=== PATIENT | female | born 1985 | race Caucasian/White ===

== ENCOUNTER 2018-01-22 08:52 | Emergency (ER) | payer BC, OTHER ==
[2018-01-22 09:35] VITALS: BP 119/71
--- NOTE | 2018-01-22 09:48 | UC ---
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 and fell to the ground she caught the patient with her right arm and pulled on her right shoulder patient has exquisite pain in her right shoulder - History of Current Complaint Chief Complaint: UCTrauma Stated Complaint: WC-RT SHOULDER INJURY Time Seen by Provider: 01/22/18 09:39 Hx Obtained From: Patient Hx Last Menstrual Period: 01/20/18 ?: No Onset/Duration: Sudden Onset, Lasting Hours - 1.5 Timing: Constant Location Of Pain: Is Discrete @ - right shoulder Pain Intensity: 3 Pain Scale Used: 0-10 Numeric Character: Aching, Throbbing Aggravating Factor(s): Movement Alleviating Factor(s): Rest, Ice, OTC Meds - ibuprofen Associated Signs And Symptoms: Positive: Negative Related History: Dominant Hand Right - Allergies/Home Medications Allergies/Adverse Reactions: Allergies Allergy/AdvReac Type Severity Reaction Status Date / Time Penicillins Allergy Severe Anaphylatic Verified 01/22/18 09:35 Shock Home Medications: Home Medications Ibuprofen TAB* [Motrin TAB* 600 MG] 600 mg PO Q6H PRN 01/22/18 [History Confirmed 01/22/18] PMH/Surg Hx/FS Hx/Imm Hx Previously Healthy: Yes - Surgical History Surgical History: Yes Surgery Procedure, Year, and Place: Tubaligation - Family History Known Family History: Positive: None - Social History Occupation: Employed Full-time Lives: With Family Alcohol Use: Occasionally Substance Use Type: None Smoking Status (MU): Heavy Every Day Tobacco Smoker Have You Smoked in the Last Year: Yes Cessation Counseling: Patient Advised to Stop Review of Systems Constitutional: Negative Skin: Negative Eyes: Negative ENT: Negative Respiratory: Negative Cardiovascular: Negative Gastrointestinal: Negative Genitourinary: Negative Motor: Negative Neurovascular: Negative Musculoskeletal: Arthralgia - right shoulder Neurological: Negative Psychological: Negative Is Patient Immunocompromised?: No All Other Systems Reviewed And Are Negative: Yes Physical Exam Triage Information Reviewed: Yes Appearance: Well-Appearing, Well-Nourished, Pain Distress - right shoulder Vital Signs: Initial Vital Signs Temp 98.2 F 01/22/18 09:28 Pulse 77 01/22/18 09:28 Resp 16 01/22/18 09:28 BP 119/71 01/22/18 09:28 Pulse Ox 100 01/22/18 09:28 Vital Signs Reviewed: Yes Eye Exam: Normal Eyes: Positive: Conjunctiva Clear ENT Exam: Normal ENT: Positive: Normal ENT inspection, Hearing grossly normal. Negative: Trismus , Muffled voice, Hoarse voice Dental Exam: Normal Neck exam: Normal Neck: Positive: Supple, Nontender Respiratory Exam: Normal Respiratory: Positive: Chest non-tender, No respiratory distress, No accessory muscle use Cardiovascular Exam: Normal Cardiovascular: Positive: RRR, Pulses Normal, Brisk Capillary Refill Musculoskeletal Exam: Other Musculoskeletal: Positive: No Edema, Strength Limited @ - right shoulder, ROM Limited @ - right shoulder Neurological Exam: Normal Neurological: Positive: Alert, Muscle Tone Normal Psychological Exam: Normal Skin Exam: Normal Diagnostics - Radiology No standard instances Xray Interpretation: No Acute Changes Radiology Interpretation Completed By: ED Physician - Patient Name: JULIO CESAR REDMAN Medical Record#: [id number] Ordering Physician: Kristen Heaton NP Acct.#: [id number] : 1985 Age: 32 Sex: F Location: [facility] Exam Date: 01/22/18942 ADM Status: REG ER Order Information: SHOULDER RIGHT 2+ VWS Accession Number: [id number] CPT: 04091 Indication: RIGHT shoulder pain following pulling injury today. Comparison: No relevant prior exams available on the [facility] for comparison. Technique: Internal rotation AP, external rotation Grashey, scapular Y, axillary views RIGHT shoulder Report: Negative for fracture. Normal acromioclavicular and glenohumeral joint alignment. No arthropathic change evident. Unremarkable soft tissue contours. IMPRESSION: #. Negative radiographic exam of the RIGHT shoulder. <Electronically signed by Rakesh Day MD in OV> 1000 Dictated By: Rakesh Day MD Dictated Date/Time: 01/22/18 1000 Transcribed Date/Time: 01/22/18 0959 Copy to: CC:Kristen Heaton NP; ANTOINE Berger ; Donaldo Ventura MD; No Primary Care Phys,[facility] Imaging - [facility] Imaging - [facility] Imaging - [facility] [id number] [place] [id number] [place] [id number] ph ([phone] ph ) ph ([phone]) This report is only to be considered final once signed by the Provider(s) as displayed in the "<Electronically Signed by >" field (s). Absence of a signature indicates the report is in a draft status and still needs to be finalized. In the event this document was created by someone other than the signing Provider, the individual initiating the document will be listed in the "Entered by:" or "Dictated by:" wolfe. 1 of 1, Radiologist Shoulder Course/Dx - Course Assessment/Plan: sling, ice, ibuprofen, nicotine cesasation information follow with Dr. Davis this week - Differential Dx/Diagnosis Provider Diagnoses: right shoulder sprain, nicotine dependent Discharge - Sign-Out/Discharge Documenting (check all that apply): Patient Departure - Discharge Plan Condition: Stable Disposition: HOME Prescriptions: Ibuprofen TAB* [Motrin TAB* 600 MG] 600 mg PO Q6H PRN #30 tab PRN Reason: pain Patient Education Materials: How to Stop Smoking (ED), Shoulder Sprain (ED), Ice Pack Application (ED) Forms: *Work Release Referrals: Chele Davis MD [Medical Doctor] - 2 Days - Billing Disposition and Condition Condition: STABLE Disposition: Home
--- NOTE | 2018-01-22 10:03 | RAD ---
Indication: RIGHT shoulder pain following pulling injury today. Comparison: No relevant prior exams available on the [facility] for comparison. Technique: Internal rotation AP, external rotation Grashey, scapular Y, axillary views RIGHT shoulder Report: Negative for fracture. Normal acromioclavicular and glenohumeral joint alignment. No arthropathic change evident. Unremarkable soft tissue contours. IMPRESSION: #. Negative radiographic exam of the RIGHT shoulder.
== END 2018-01-22 10:28 | disposition home or self-care (01) ==
LOC: UCCORT 08:52
DX: S43.401A Unspecified sprain of right shoulder joint, initial encounter (principal); X50.0XXA Overexertion from strenuous movement or load, initial encounter; Y93.89 Activity, other specified; Y92.9 Unspecified place or not applicable; Z88.0 Allergy status to penicillin; F17.210 Nicotine dependence, cigarettes, uncomplicated
CPT/HCPCS: 99213; G0463

== ENCOUNTER 2018-09-03 09:09 | Day surgery (SDC) | payer OTHER ==
--- NOTE | 2018-08-27 14:52 | HP ---
PREOPERATIVE HISTORY AND PHYSICAL: DATE OF ADMISSION/SURGERY: 09/03/18 - [facility] DATE OF OFFICE VISIT: 08/23/18 ATTENDING SURGEON: Dr. Juan Marshall.* (DICTATED BY TAMEKA GAMEZ) PROCEDURES: Right shoulder possible arthroscopic rotator cuff repair, arthroscopic decompression, debridement, subpectoral biceps tenodesis, and excision of distal clavicle. CHIEF COMPLAINT: Right shoulder pain. HISTORY OF PRESENT ILLNESS: Lucila is a 33-year-old female who presents to clinic for right shoulder pain due to a work-related injury that caused impingement and biceps tendonitis as well as AC joint arthritis. She has failed conservative measures and agreed to undergo right shoulder possible arthroscopic rotator cuff repair, arthroscopic decompression, debridement, subpectoral biceps tenodesis, and excision of distal clavicle with Dr. Marshall on 09/03/18. PAST MEDICAL HISTORY: Childhood asthma, depression, and anxiety. PAST SURGICAL HISTORY: Tubal ligation. The patient denies prior complication with anesthesia. MEDICATIONS: No active medications. ALLERGIES: PENICILLIN, AMOXICILLIN, AND AMPICILLIN. FAMILY HISTORY: Positive for heart disease, stroke, and cancer. SOCIAL HISTORY: She lives with her spouse. 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 She is a smoker at one-half pack to three-quarters pack per day. She reports occasional alcohol consumption. She is right-hand dominant. REVIEW OF SYSTEMS: A 14-point review of systems was reviewed with the patient. Positive for current complaint; otherwise, negative. Denies fever, chills, chest pain, shortness of breath, history of DVT or PE, history of bleeding disorder. PHYSICAL EXAMINATION GENERAL: A 33-year-old well-developed, well-nourished female, in no acute distress. VITAL SIGNS: Height 65, weight 150. Pulse 68, blood pressure 122/80, temperature 97.0. BMI 25.0. HEENT: Normocephalic, atraumatic. PERRLA. Throat clear. NECK: Supple. PULMONARY: Lungs are clear to auscultation bilaterally. No wheezing, rhonchi, or rales. CARDIO: Regular rate and rhythm. S1, S2. No murmurs, gallops, or rubs. No edema. ABDOMEN: Positive bowel sounds. Soft, nontender. NEURO: Alert and oriented x3. Cranial nerves grossly intact. MUSCULOSKELETAL: Right upper extremity: Skin is intact. Tenderness over the biceps tendon and AC joint. Forward flexion 120, abduction 90, external rotation 45, internal rotation to lumbar spine; +4/5 strength to rotator cuff testing with pain. Positive impingement, Speed, [place], and [place]; +2 radial pulse. Sensation intact to light touch distally. DIAGNOSTIC STUDIES/LAB DATA: MRI reveals bursal-sided tearing of the supraspinatus tendon as well as a SLAP tear. IMPRESSION: Right shoulder rotator cuff tear, biceps tendonitis, and acromioclavicular joint arthritis. PLAN: Patient is scheduled to undergo right shoulder possible arthroscopic rotator cuff repair, arthroscopic decompression, debridement, subpectoral biceps tenodesis, and excision of distal clavicle with Dr. Marshall on 09/03/18. She will follow up in 10 to 14 days postop for followup and suture removal. Percocet will be used for postop pain management. TAMEKA GAMEZ [id number]/[facility] #: [id number] [facility]
[~2018-09-03 09:09] MED LIST: Buffered Lidocaine 1% SYRIN* 1 ML/SYRINGE INTRADERM ONE; Famotidine IV* 10 MG/ML 2 ML (20 mg) IV ONE; Famotidine IV* 10 MG/ML 2 ML (20 mg) ONE; Lactated Ringers 1000 ML Bag* 1,000 ML IV SCH
[2018-09-03] MEDS ORDERED: Midazolam* 1 MG/ML 5 ML VIAL (5 MG) ONE (11:26)
[2018-09-03] MEDS ORDERED: fentaNYL* 50 MCG/ML 2 ML VIAL (100 MCG VIAL) ONE (11:26)
[2018-09-03] MEDS ORDERED: ROPIVACAINE 5 MG/ML 30 ML BTL (0.5%) ONE ×2 (12:01→12:12)
[2018-09-03] MEDS ORDERED: Lidocaine 1%* 5 ML VIAL ONE (12:01)
[2018-09-03] MEDS ORDERED: Clindamycin 900 MG/D5W BAG(*) 900 MG/50 ML BAG IVPB ONE (12:01)
[2018-09-03] MEDS ORDERED: Ropivacaine* 2 MG/ML 20 ML VIAL (0.2%) ONE (12:03)
[2018-09-03] MEDS ORDERED: Ketorolac INJ* 30 MG/ML 1 ML VIAL ONE (12:59)
[2018-09-03] MEDS ORDERED: Dexamethasone IV* 4 MG/ML 1 ML (4 MG) ONE (12:59)
[2018-09-03] MEDS ORDERED: Lidocaine 2% PF * 5 ML VIAL ONE (12:59)
[2018-09-03] MEDS ORDERED: Ondansetron INJ* 2 MG/ML VIAL ONE (12:59)
[2018-09-03] MEDS ORDERED: Propofol* 10 MG/ML 20 ML BTL ONE (12:59)
[2018-09-03] MEDS ORDERED: DiMENhydriNATE IV* 50 MG/ML VIAL ONE ×2 (12:59→14:31)
[2018-09-03] MEDS ORDERED: Naloxone* 0.4 MG/ML 1 ML VIAL IV PRN (13:33)
[2018-09-03] MEDS ORDERED: DiMENhydriNATE IV* 50 MG/ML VIAL IV PUSH PRN (13:33)
[2018-09-03] MEDS ORDERED: Acetaminophen TAB* 325 MG PO PRN (13:33)
[2018-09-03] MEDS ORDERED: HYDROmorphone INJ* 0.5 MG/0.5 ML SYRINGE ONE (14:23)
[2018-09-03] MEDS: HYDROmorphone INJ1* 1 MG/ML SYRINGE IV PRN ×3 (14:30→15:15)
[2018-09-03] MEDS ORDERED: Acetaminophen TAB* 325 MG ONE (14:41)
[2018-09-03] MEDS ORDERED: oxyCODONE/Acetamin 5/325 MG* TAB ONE (14:52)
[2018-09-03 15:52] VITALS: BP 94/55
--- NOTE | 2018-09-03 22:01 | OP ---
DATE OF OPERATION: 09/03/18 [facility] DATE OF : [birth year] SURGEON: Juan Marshall MD ASSISTANTS: 1. TAMEKA Collins 2. ANDREE Grace student. An boilermaker's assistant was needed for the entirety of the case to help with positioning, retraction, and was utilized throughout all portions of the case. ANESTHESIOLOGIST: Dr. Aguirre. ANESTHESIA: General interscalene block. PRE-OP DIAGNOSES: Right shoulder high-grade partial-thickness tear of the rotator cuff as well as acromioclavicular joint arthritis and bicipital tendonitis. POST-OP DIAGNOSES: Right shoulder high-grade partial thickness tear of the rotator cuff as well as acromioclavicular joint arthritis and bicipital tendonitis. OPERATIVE PROCEDURE: Right shoulder arthroscopy with: 1. Extensive glenohumeral debridement. 2. Subacromial decompression with acromioplasty. 3. Distal clavicle excision. 4. Rotator cuff repair using Regeneten patch. 5. Open biceps tenodesis. COMPLICATIONS: None. ESTIMATED BLOOD LOSS: Minimal. INDICATIONS: Lucila Waldrop is a 33-year-old female who sustained a work- related injury in December 2017. She has exhausted conservative management and elected to proceed with surgical treatment. Risks and benefits of surgery were discussed in length including but not limited to bleeding, infection, damage to nerves, vessels, and surrounding structures, wound nonhealing, persistent pain, need for further surgery, scarring, stiffness, incomplete relief of symptoms, and risks of anesthesia. DESCRIPTION OF PROCEDURE: The patient was greeted in the preoperative area by the attending surgeon. Correct extremity was marked and consent was confirmed. She underwent interscalene nerve block by the anesthesiologist after which she was brought back to the operating suite, where she was placed in supine position on the operating room. She underwent general anesthesia and endotracheal intubation after which she was placed in the left lateral decubitus position with all bony prominences well padded. She was secured with a pegboard. The right shoulder was then placed in 10 pounds traction. The right shoulder was prepped and draped in the usual sterile fashion using chlorhexidine soap, scrub, and alcohol wipe and a final prep with ChloraPrep. After appropriate surgical pause indicating site, side, procedure and administration of antibiotics, the standard postero-lateral portal was made sharply with an #11 blade. The scope was introduced into the joint. The joint was examined. The glenohumeral joint had grade 0 to 1 changes. There was fraying on the anterior, posterior, superior labrum. The inferior recess was intact. Subscap was intact. Articular surface of the rotator cuff was intact. The anterior portal was made in an outside-in fashion. Shaver was used to debride back the anterior, posterior, superior labrum and superior labrum had a type 2 labrum. She had a small sublabral foramen as well, which was scarred to the capsule and the interval. The biceps were then tenotomized for later tenodesis. Some of the adhered capsule was then released as well. There was obvious damage to the kris of the biceps as well. The anterior, posterior, and superior labrum were also debrided back using a shaver. Once the intra- articular work was completed, attention was directed to the subacromial space. The scope was introduced into the subacromial space. The lateral portal was made in an outside-in fashion. Shaver was used to debride back the abundant bursa that was present. The undersurface of the acromion was then skeletonized using electrocautery device, which revealed an anterior lateral spur. This was debrided back using a 4-0 oval angela. The bone quality was somewhat soft. There was evidence of bursal-sided tearing of the rotator cuff. Once the acromioplasty was completed, CA ligament was peeled back. Attention was directed to the AC joint. The angela was brought into the anterior portal and the end of the clavicle was addressed. The distal clavicle was then excised, approximately 8 mm of the distal clavicle. This was then checked and undertaken under range of motion. Care was taken not to damage any of the coracoclavicular ligaments. Once this was done, all loose debris and fluid was removed. Attention was directed to the cuff. The cuff was probed and there was high-grade bursal-sided tearing. The decision was made to treat this with a Regeneten patch. A size medium Regeneten patch was then brought to the field and placed appropriately. This was then secured medially with tendon akiko and then laterally with the bone akiko. This was found to be well seated, taken through gentle range of motion , and found to be intact. Final images were obtained. The wounds were copiously irrigated with sterile saline. Attention was directed to the biceps. The bed was air planed to the right side and the anterior aspect of the shoulder was prepped again using the Chlora-Prep. A #15 blade was used to make an incision in line with the biceps and the subcutaneous tissue carefully dissected to expose the pec fascia and remainder of dissection was done bluntly. The biceps was then palpated in the groove and brought through the wound with abundant synovitis that was present. The groove was then prepared in the usual fashion with electrocautery device, Red ball rasp and osteotome. Then the Q-Fix 2.8 mm anchor was then placed unicortically. This was placed with excellent purchase. The sutures were passed through in a Judah-Mo type configuration. Final and then excess stump was excised. This was then tied down and secured. The wounds were then copiously irrigated with sterile saline. The portals were closed with 3-0 nylon, the skin in layers with 3-0 Monocryl subcu in running. Sterile dressings were applied. Cryo/Cuff and UltraSling were applied. She was awoken from anesthesia and transferred to the PACU in stable condition. POSTOPERATIVE PLAN: She will be nonweightbearing, she will be in the sling for four weeks. Discharged on pain medication and antibiotics. DVT prophylaxis was considered but deferred due to no previous personal or family history. I will see the patient back in 10 to 14 days. [id number]/[facility] #: [id number]
== END 2018-09-03 15:50 | disposition home or self-care (01) ==
LOC: OREAST 09:09
PROVIDERS: ATTEND Orthopaedic Surgery
DX: S46.011A Strain of muscle(s) and tendon(s) of the rotator cuff of right shoulder, initial encounter (principal); M75.21 Bicipital tendinitis, right shoulder; M19.011 Primary osteoarthritis, right shoulder; G89.18 Other acute postprocedural pain; X58.XXXA Exposure to other specified factors, initial encounter; Y92.89 Other specified places as the place of occurrence of the external cause; Y99.0 Civilian activity done for income or pay; Z72.0 Tobacco use; F41.8 Other specified anxiety disorders
CPT/HCPCS: 88304; A9270-GY; C1713; C1776; J1100; J1170; J1240; J1885; J2250; J2405; J2704; J2795; J3010